=== PATIENT | female | born 1970 | race Caucasian/White ===

== ENCOUNTER 2019-07-03 16:51 | Emergency (ER) | payer OTHER ==
[~2019-07-03] VITALS: Ht 172.7 cm; Wt 74.8 kg
--- OUTSIDE RECORDS SUMMARY | 2019-07-03 16:54 | XMS REPORT ---
Author Author [facility] Address Unknown Phone Unavailable Care Team Providers Care Contingents Supervisor Name Role Phone Unavailable Unavailable Payers Payer Name Policy Type Policy Number Effective Date Expiration Date Problems This patient has no known problems. Allergies, Adverse Reactions, Alerts Allergy Name Allergy Type Status Severity Reaction(s) Onset Date Inactive Date Treating Clinician Comments No Known Allergies DA Active U 2012-06-15 00:00:00 Medications This patient has no known medications.
[2019-07-03] MEDS ORDERED: SODIUM CHLORIDE 0.9% 1000ML 1,000 ML IV STA ×4 (17:32→17:38)
[2019-07-03] MEDS ORDERED: MORPHINE SULFATE 2 MG/ML SYR 1ML IV STA (17:32)
[2019-07-03] MEDS ORDERED: ONDANSETRON HCL INJ 2MG/ML 2ML 2 MG/ML VIAL IV STA (17:32)
[2019-07-03 17:33] LABS: BILIRUBIN,URINE SMALL (NEGATIVE); KETONES,URINE NEGATIVE (NEGATIVE); LEUKOCYTE ESTERASE ,URINE SMALL (NEGATIVE); NITRITE,URINE NEGATIVE (NEGATIVE); PREGNANCY TEST, URINE NEGATIVE (NEGATIVE); PROTEIN,URINE DIPSTICK 2+ (NEGATIVE); URINE UROBILINOGEN 0.2 mg/dL (0.2 - 1)
[2019-07-03 17:35] LABS: CLARITY,URINE CLOUDY (CLEAR); COLOR,URINE STRAW (YELLOW)
[2019-07-03] MEDS ORDERED: CIPROFLOXACIN 400 MG/D5W 200ML 200 ML IV ONE (17:45)
[2019-07-03 17:49] LABS: BACTERIA,URINE MANY /HPF; EPITHELIAL CELLS,URINE MODERATE /LPF
[2019-07-03 17:57] LABS: BASOPHILS % 0.3 % (0.0-1.0); EOSINOPHILS # (AUTO) 0.1 (0.0-0.4); EOSINOPHILS % 0.8 % (0.0-6.0); HEMATOCRIT 47.3 % (34.2-44.1); LYMPHOCYTES # (AUTO) 0.9 (1.0-3.2); LYMPHOCYTES % 7.3 % (18.0-39.1); MEAN CORPUSCULAR HEMOGLOBIN 31.3 pg (28-32); MEAN CORPUSCULAR HGB CONC 33.8 g/dL (31-35); MEAN CORPUSCULAR VOLUME 92.4 fL (81-99); MONOCYTES # (AUTO) 0.7 (0.2-0.8); MONOCYTES % 5.9 % (4.4-11.3); NEUTROPHILS # (AUTO) 10.1 (2.1-6.9); NEUTROPHILS % 83.6 % (38.7-80.0); PLATELET COUNT 226 x10e3/uL (140-360); RED BLOOD COUNT 5.12 x10e6/uL (3.6-5.1); RED CELL DISTRIBUTION WIDTH 12.3 % (11.7-14.4)
[2019-07-03 18:15] LABS: ALBUMIN/GLOBULIN RATIO 1.2 (0.8-2.0); ANION GAP 15.5 mmol/L (8-16); CALCIUM 9.3 mg/dL (8.4-10.2); CREATININE, SERUM 1.31 mg/dL (0.57-1.11); POTASSIUM 3.5 mmol/L (3.5-5.1)
[2019-07-03 18:55] VITALS: BP 123/56
[2019-07-03 21:03] LABS: LYMPHOCYTES % (MANUAL) 3 % (19-48); MONOCYTES % (MANUAL) 3 % (3.4-9.0); NEUTROPHILS % (MANUAL) 88 % (40-74); PLATELET ESTIMATE ADEQUATE; PLATELET MORPHOLOGY COMMENT FEW LARGE; RBC MORPHOLOGY COMMENT NORMAL
== END 2019-07-03 19:15 | disposition home or self-care (01) ==
LOC: ER 16:51
DX: R19.7 Diarrhea, unspecified (principal); I10 Essential (primary) hypertension; F41.9 Anxiety disorder, unspecified; F32.9 Major depressive disorder, single episode, unspecified
CPT/HCPCS: 36415; 80053; 81001; 81025; 83690; 83735; 85025; 99284; J0744; J2270; J2405; J7030

== ENCOUNTER 2022-09-17 14:55 | Inpatient (IN) | payer BC ==
[~2022-09-17] VITALS: Ht 172.7 cm; Wt 77.1 kg
[~2022-09-17 14:55] MED LIST: FENTANYL CITRATE/PF 100MCG/2 ML INJ ONE; MIDAZOLAM HCL 2 MG/2 ML VIAL ONE
[2022-09-17] MEDS ORDERED: SODIUM CHLORIDE 0.9% 1000ML 1,000 ML IV SCH ×2 (15:15→15:30)
[2022-09-17] MEDS ORDERED: ONDANSETRON HCL INJ 2MG/ML 2ML 2 MG/ML VIAL IV STA (15:16)
[2022-09-17] MEDS ORDERED: KETOROLAC TROMETHAMINE 30 MG/ML VIAL IV STA (15:16)
[2022-09-17] MEDS ORDERED: SODIUM CHLORIDE 0.9% 1000ML 1,000 ML ONE (15:20)
[2022-09-17 15:25] LABS: BASOPHILS # (AUTO) 0.1 (0.0-0.1); BASOPHILS % 0.4 % (0.0-1.0); EOSINOPHILS # (AUTO) 0.1 (0.0-0.4); EOSINOPHILS % 0.3 % (0.0-6.0); LYMPHOCYTES # (AUTO) 1.5 (1.0-3.2); LYMPHOCYTES % 7.9 % (18.0-39.1); MEAN CORPUSCULAR HEMOGLOBIN 30.4 pg (28-32); MEAN CORPUSCULAR HGB CONC 33.3 g/dL (31-35); MEAN CORPUSCULAR VOLUME 91.1 fL (81-99); MONOCYTES # (AUTO) 1.6 (0.2-0.8); MONOCYTES % 8.3 % (4.4-11.3); NEUTROPHILS # (AUTO) 15.5 (2.1-6.9); NEUTROPHILS % 82.5 % (38.7-80.0); PLATELET COUNT 287 x10e3/uL (140-360); RED BLOOD COUNT 4.28 x10e6/uL (3.6-5.1); RED CELL DISTRIBUTION WIDTH 11.9 % (11.7-14.4)
[2022-09-17 15:43] LABS: ALBUMIN 3.5 g/dL (3.5-5.0); ALBUMIN/GLOBULIN RATIO 0.9 (0.8-2.0); ANION GAP 15.1 mmol/L (8-16); CALCIUM 9.6 mg/dL (8.4-10.2); CREATININE, SERUM 1.8 mg/dL (0.57-1.11); POTASSIUM 4.1 mmol/L (3.5-5.1)
[2022-09-17 15:49] LABS: CREATINE KINASE MB 0.7 ng/mL (0-5.0)
[2022-09-17 15:50] LABS: INR 1.07; PROTHROMBIN TIME 14.1 seconds (11.9-14.5)
[2022-09-17 15:51] LABS: PARTIAL THROMBOPLASTIN TIME 33.2 seconds (23.8-35.5)
[2022-09-17 15:54] LABS: B-TYPE NATRIURETIC PEPTIDE2 34.7 pg/mL (0-100)
[2022-09-17 16:40] LABS: CLARITY,URINE CLEAR (CLEAR); COLOR,URINE YELLOW (YELLOW); KETONES,URINE NEGATIVE (NEGATIVE); LEUKOCYTE ESTERASE ,URINE NEGATIVE (NEGATIVE); NITRITE,URINE NEGATIVE (NEGATIVE); PROTEIN,URINE DIPSTICK 1+ (NEGATIVE); URINE UROBILINOGEN 0.2 mg/dL (0.2 - 1)
[2022-09-17 16:54] LABS: RBC,URINE 0-5 /HPF (0-5)
[2022-09-17 16:55] LABS: BACTERIA,URINE FEW /HPF; EPITHELIAL CELLS,URINE FEW /LPF; WBC,URINE (MAN) 0-5 /HPF (0-5)
[2022-09-17] MEDS ORDERED: Morphine 2mg Syringe 2 MG/ML SYR IV PRN (18:00)
[2022-09-17] MEDS: SODIUM CHLORIDE 0.9% 1000ML 1,000 ML IV SCH (18:17)
[2022-09-17 19:00] VITALS: BP 100/65
[2022-09-17] MEDS ORDERED: TRAMADOL HCL 50 MG TAB PO PRN (19:45)
[2022-09-17 20:00] VITALS: BP 100/65
[2022-09-17] MEDS ORDERED: PROBIOTIC & AC1 EACH PO (20:30)
[2022-09-17] MEDS ORDERED: EFFEXOR XR150 MG PO (20:30)
[2022-09-17] MEDS ORDERED: COREG12.5 MG PO (20:30)
[2022-09-17] MEDS ORDERED: MULTI-VITAMIN1 EACH PO (20:30)
[2022-09-17] MEDS ORDERED: LISINOPRIL10 MG PO (20:30)
[2022-09-17] MEDS: ZOLPIDEM TARTRATE 10 MG TAB PO SCH (20:32)
[2022-09-17 20:39] VITALS: BP 109/79
[2022-09-18] VITALS (10 sets, daily range): BP systolic 111–135; BP diastolic 65–82
[2022-09-18] MEDS: SODIUM CHLORIDE 0.9% 1000ML 1,000 ML IV SCH ×3 (03:58→18:36)
[2022-09-18 05:29] LABS: BASOPHILS % 0.3 % (0.0-1.0); EOSINOPHILS # (AUTO) 0.1 (0.0-0.4); EOSINOPHILS % 1.2 % (0.0-6.0); HEMATOCRIT 33.3 % (34.2-44.1); HEMOGLOBIN 11.4 g/dL (12.0-16.0); LYMPHOCYTES # (AUTO) 1.2 (1.0-3.2); LYMPHOCYTES % 12.5 % (18.0-39.1); MEAN CORPUSCULAR HEMOGLOBIN 30.6 pg (28-32); MEAN CORPUSCULAR HGB CONC 34.2 g/dL (31-35); MEAN CORPUSCULAR VOLUME 89.3 fL (81-99); MONOCYTES # (AUTO) 0.9 (0.2-0.8); MONOCYTES % 9.1 % (4.4-11.3); NEUTROPHILS # (AUTO) 7.2 (2.1-6.9); NEUTROPHILS % 76.4 % (38.7-80.0); PLATELET COUNT 194 x10e3/uL (140-360); RED BLOOD COUNT 3.73 x10e6/uL (3.6-5.1); RED CELL DISTRIBUTION WIDTH 12.1 % (11.7-14.4)
[2022-09-18 05:55] LABS: ANION GAP 12.6 mmol/L (8-16); CALCIUM 8.3 mg/dL (8.4-10.2); CREATININE, SERUM 0.83 mg/dL (0.57-1.11); POTASSIUM 3.6 mmol/L (3.5-5.1)
[2022-09-18] MEDS ORDERED: ROCURONIUM BROMIDE 10 MG/ML 5ML VIAL IV ONE (12:44)
[2022-09-18] MEDS ORDERED: PROPOFOL IV EMULSION 10 MG/ML 20 ML VIAL ONE (12:44)
[2022-09-18] MEDS ORDERED: POVIDONE IODINE 0.05% 0.05 % ML PO ONE (12:44)
[2022-09-18] MEDS ORDERED: ONDANSETRON HCL INJ 2MG/ML 2ML 2 MG/ML VIAL ONE (12:44)
[2022-09-18] MEDS ORDERED: GLYCOPYRROLATE INJ 0.2 MG/ML VIAL ONE (12:44)
[2022-09-18] MEDS ORDERED: DEXAMETHASONE SOD PHOS INJ 4 MG/ML SDV ONE (12:44)
[2022-09-18] MEDS ORDERED: SEVOFLURANE INHAL SOLN 250 ML PEN BTL ONE (12:44)
[2022-09-18] MEDS ORDERED: LIDOCAINE HCL 2% LOCAL INJ 5 ML SDV VIAL INJ ONE (12:44)
[2022-09-18] MEDS ORDERED: NEOSTIGMINE 1 MG/ML 10ML VIAL ONE (12:44)
[2022-09-18] MEDS ORDERED: KETOROLAC TROMETHAMINE 30 MG/ML VIAL ONE (12:44)
[2022-09-18] MEDS ORDERED: KETOROLAC TROMETHAMINE 30 MG/ML VIAL IV PRN (15:30)
[2022-09-18] MEDS ORDERED: BUPIVACAINE 0.5%/EPI 30 ML SDV INJ ONE (16:38)
[2022-09-18] MEDS: Morphine 4mg INJECTION 4 MG/ML INJ IV PRN (20:00)
[2022-09-18] MEDS: ONDANSETRON HCL INJ 2MG/ML 2ML 2 MG/ML VIAL IV PRN (20:01)
[2022-09-18] MEDS: ZOLPIDEM TARTRATE 10 MG TAB PO SCH (21:00)
[2022-09-19] MEDS: Morphine 4mg INJECTION 4 MG/ML INJ IV PRN ×2 (00:02→04:43)
[2022-09-19] MEDS: ONDANSETRON HCL INJ 2MG/ML 2ML 2 MG/ML VIAL IV PRN ×2 (00:03→04:43)
[2022-09-19] MEDS: SODIUM CHLORIDE 0.9% 1000ML 1,000 ML IV SCH ×2 (00:07→08:20)
[2022-09-19 04:49] VITALS: BP 116/82
[2022-09-19 08:42] VITALS: BP 139/81
[2022-09-19 08:45] VITALS: BP 139/81
[2022-09-19 08:48] VITALS: BP 139/81
[2022-09-19] MEDS ORDERED: ULTRAM 50MG50 MG PO (10:35)
[2022-09-19] MEDS ORDERED: KETOROLAC TROME10 MG PO (10:38)
[2022-09-19] MEDS ORDERED: ACETAMINOPHEN-1 EAC3 PO (11:39)
[2022-09-19 12:01] VITALS: BP 140/76
[2022-09-19 12:25] VITALS: BP 140/76
== END 2022-09-19 14:00 | disposition home or self-care (01) | DRG 854 ==
LOC: ER 15:02 → MERGE 18:06 → ERHOLD 18:06 → MED/SURG 18:41
PROVIDERS: ADMIT Internal Medicine; ATTEND Internal Medicine
PROC: 0FT44ZZ Resection of Gallbladder, Percutaneous Endoscopic Approach (ICD-10-PCS; principal; 2022-09-18 16:24)
DX: A41.9 Sepsis, unspecified organism (principal); K81.0 Acute cholecystitis; N17.9 Acute kidney failure, unspecified; I10 Essential (primary) hypertension; F17.210 Nicotine dependence, cigarettes, uncomplicated; E86.0 Dehydration; Z20.822 Contact with and (suspected) exposure to COVID-19
CPT/HCPCS: 36415; 71045; 74176; 76705; 80048; 80053; 81001; 82550; 82553; 83605; 83690; 83880; 84484; 84702; 85025; 85610; 85730; 87040; 87086; 88304; 93005; 99284; J0690; J1100; J1885; J2001; J2250; J2270; J2405; J2543; J2710; J3010; J7030